=== PATIENT | male | born 1990 | race American Indian/Alaskan Native ===

== ENCOUNTER 2022-01-04 10:11 | Emergency (ER) | payer SELFPAY ==
[2022-01-04] MEDS ORDERED: KETOROLAC 30 MG/1 ML INJ IV ONE (10:37)
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
[2022-01-04 11:37] LABS: Basophils % (Auto) 0.4 % (0.0-1.8); Eosinophils # (Auto) 0.4 K/mm3 (0.0-0.4); Hematocrit 38.3 % (35.5-45.6); Hemoglobin 13.1 gm/dl (11.8-15.2); Lymphocytes # (Auto) 1.7 K/mm3 (1.2-5.4); Lymphocytes % (Auto) 26.3 % (13.4-35.0); Mean Corpuscular HGB Conc 34 % (32-34); Mean Corpuscular Volume 98 fl (84-94); Monocytes # (Auto) 0.5 K/mm3 (0.0-0.8); Monocytes % (Auto) 8.6 % (0.0-7.3); Platelet Count 171 K/mm3 (140-440)
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
[2022-01-04 11:47] LABS: INR 0.91 (0.87-1.13); Partial Thromboplastin Time 28.7 Sec. (24.2-36.6)
[2022-01-04 12:01] LABS: Alanine Aminotransferase 18 units/L (7-56); Blood Urea Nitrogen 8 mg/dL (9-20); Calcium 8.6 mg/dL (8.4-10.2); Hemolysis Index 13
[2022-01-04 12:02] LABS: BUN/Creatinine Ratio 11
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
[2022-01-04] MEDS ORDERED: MORPHINE 4 MG/1 ML INJ IV ONE (13:50)
[2022-01-04 14:07] VITALS: BP 124/83
[2022-01-04] MEDS ORDERED: SODIUM CHLORIDE 0.9% 500 ML 500 ML IV ONE (14:11)
== END 2022-01-04 14:48 | disposition home or self-care (01) ==
LOC: ED 10:11
DX: S70.211A Abrasion, right hip, initial encounter (principal); S90.411A Abrasion, right great toe, initial encounter; S80.211A Abrasion, right knee, initial encounter; S60.812A Abrasion of left wrist, initial encounter; M79.18 Myalgia, other site; R10.9 Unspecified abdominal pain; J43.9 Emphysema, unspecified; R79.1 Abnormal coagulation profile; V89.2XXA Person injured in unspecified motor-vehicle accident, traffic, initial encounter; Y93.89 Activity, other specified; Y92.488 Other paved roadways as the place of occurrence of the external cause; Y99.8 Other external cause status
CPT/HCPCS: 29125; 36415; 70450; 71045; 71260; 72125; 73030; 73110; 73562; 73630; 74177; 80053; 85025; 85610; 85730; 86850; 86900; 86901; 96374; 96375; 99285; J1885; J2270; Q9967; 99284